=== PATIENT | female | born 1990 | race Two or more races ===

== ENCOUNTER → 2024-06-17 | Outpatient (CLI) | payer MEDICAID, SELFPAY ==
--- NOTE | 2024-06-17 11:30 | XR_ITS ---
Examination: Abdomen sonogram, complete Date and time of exam: June 17, 2024 1147 hours INDICATIONS: Abnormal liver function tests on laboratory examination performed 3 months ago. Technique: Multiple real-time grayscale transabdominal sonographic images of the abdomen have been obtained. Findings: Gallbladder not visualized Normal common bile duct 0.1 cm Pancreatic head 0.8 cm Aorta not enlarged. Liver 17 cm no focal liver lesions Normal hepatopedal portal venous flow Patent IVC Right kidney 8.0 cm renal cortex 1.2 cm Left kidney 8.0 cm cortex 1.1 cm Spleen 9.0 cm IMPRESSION: Limited study, patient is in a wheelchair Gallbladder not visualized Small kidneys with bilateral renal cortical thinning, no hydronephrosis Mild hepatomegaly
== END | disposition home or self-care (01) ==
PROVIDERS: Referring Provider Nurse Practitioner Family; Visit Provider Nurse Practitioner Family
DX: R16.0 Hepatomegaly, not elsewhere classified (principal); N28.89 Other specified disorders of kidney and ureter; N27.1 Small kidney, bilateral
CPT/HCPCS: 76700